=== PATIENT | male | born 1940 | race Caucasian/White ===

== ENCOUNTER 2020-05-05 18:30 | Emergency (ER) | payer OTHER ==
[2020-05-05 18:41] VITALS: BP 112/63; PULSE 89; TEMP 98.3; BMI 29.5
--- OUTSIDE RECORDS SUMMARY | 2020-05-05 18:54 | XMS ---
:1940 Author Organization [facility] Support Name Relationship Address Phone RE Unavailable Unavailable Unavailable DAVI SHOOK [address] [place] [address] Re-disclosure Warning The records that you are about to access may contain information from federally- assisted alcohol or drug abuse programs. If such information is present, then the following federally mandated warning applies: This information has been disclosed to you from records protected by federal confidentiality rules (42 CFR part 2). The federal rules prohibit you from making any further disclosure of this information unless further disclosure is expressly permitted by the written consent of the person to whom it pertains or as otherwise permitted by 42 CFR part 2. A general authorization for the release of medical or other information is NOT sufficient for this purpose. The Federal rules restrict any use of the information to criminally investigate or prosecute any alcohol or drug abuse patient.The records that you are about to access may contain highly sensitive health information, the redisclosure of which is protected by Article 27-F of the [facility] Public Health law. If you continue you may haveaccess to information: Regarding HIV / AIDS; Provided by facilities licensed or operated by the [facility] Office of Mental Health; or Provided by the [facility] Office for People With Developmental Disabilities. If such information is present, then the following [facility] mandated warning applies: This information has been disclosed to you from confidential records which are protected by state law. State law prohibits you from making any further disclosure of this information without the specific written consent of the person to whom it pertains, or as otherwise permitted by law. Any unauthorized further disclosure in violation of state law may result in a fine or nursing home sentence or both. A general authorization for the release of medical or other information is NOT sufficient authorization for further disclosure. Insurance Providers Payer name Policy type Policy ID Covered Covered green party's Policy P rick / Coverage green party ID relationship to [employer] type [place] HIP MEDICARE [id number] VIP 2
--- NOTE | 2020-05-05 20:25 | PDOC ---
History of Present Illness - General Chief Complaint: Edema Stated Complaint: DVT Time Seen by Provider: 05/05/20 19:18 History Source: Patient Exam Limitations: No Limitations - History of Present Illness Initial Comments: 05/05/20 20:21 HISTORY OF PRESENT ILLNESS: 79-year-old male presents to the emergency department for evaluation of edema to his left hand starting 1 week ago. Patient was seen and evaluated by his primary doctor and was given antibiotics which finished on Friday. Patient reports the swelling had improved for a day and then returned. Patient was seen by his primary doctor today who recommended he come to the emergency department to rule out upper extremity DVT. No recent travel or sick contacts. PAST MEDICAL HISTORY: Denies past medical history SURGICAL HISTORY: Denies ALLERGIES: No known drug allergies REVIEW OF SYSTEMS General/Constitutional: Denies fever or chills. Denies weakness, weight change. HEENT: Denies change in vision. Denies ear pain or discharge. Denies sore throat. Cardiovascular: Denies chest pain or shortness of breath. Respiratory: Denies cough, wheezing, or hemoptysis. Gastrointestinal: Denies nausea, vomiting, diarrhea or constipation. Denies rectal bleeding. Genitourinary: Denies dysuria, frequency, or change in urination. Musculoskeletal: Denies joint or muscle swelling or pain. Denies neck or back pain. Skin and breasts: Denies rash or easy bruising. Neurologic: Denies headache, vertigo, loss of consciousness, or loss of sensation. Psychiatric: Denies depression or anxiety. Endocrine: Denies increased thirst. Denies abnormal weight change. Hematologic/Lymphatic: Denies anemia, easy bleeding, or history of blood clots. Allergic/Immunologic: Denies hives or skin allergy. Denies latex allergy. PHYSICAL EXAM General Appearance: Well-appearing, appropriately dressed. No apparent distress, no intoxication. Neck: Supple. Trachea midline. No tenderness, rigidity, carotid bruit, stridor, lymphadenopathy, or thyromegaly. Respiratory/Chest: Lungs CTAB. No shortness of breath, chest tenderness, respiratory distress, accessory muscle use. No crackles, rales, rhonchi, stridor, wheezing, dullness Cardiovascular: RRR. S1, S2. No JVD, murmur, bradycardia, tachycardia. Vascular Pulses: Radial (R): 2+, radial (L): 2+ Musculoskeletal/Extremities: Dependent edema present to the distal left forearm extending to the hand. Full range of motion of left wrist with flexion, extension, pronation and supination. Left shoulder with decreased range of motion with abduction and abduction. No palpable deformities along clavicle, shoulder, scapula or humerus of the left arm. Neurovascularly intact. Integumentary: Appropriate color, dry, warm. 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 Fully oriented, alert. Appropriate mood/affect. Motor strength 5/5. No appreciable EOM palsy, facial droop or sensory deficit. Past History - Medical History Allergies/Adverse Reactions: Allergies Allergy/AdvReac Type Severity Reaction Status Date / Time No Known Allergies Allergy Verified 05/05/20 18:35 Cardiac Disorders: Yes COPD: No - Surgical History Cardiac Surgery: Yes (Stents) - Psycho-Social/Smoking History Smoking History: Former smoker Have you smoked in the past 12 months: No If you are a former smoker, when did you quit?: 40yrs Information on smoking cessation initiated: No - Substance Abuse Hx (Audit-C & DAST Scrn) How often the patient has a drink containing alcohol: Never Score: In Men: 4 or > Positive; In Women: 3 or > Positive: 0 Screen Result (Pos requires Nsg. Audit-10AR): Negative In the last yr the pt used illegal drug/Rx for NonMed reason: No Score: Yes response is considered Positive: 0 Screen Result (Positive result requires Nsg. DAST-10): Negative *Physical Exam - Vital Signs Last Vital Signs Temp Pulse Resp BP Pulse Ox 98.3 F 89 18 112/63 100 05/05/20 18:34 05/05/20 18:34 05/05/20 18:34 05/05/20 18:34 05/05/20 18:34 ED Treatment Course - RADIOLOGY Radiology Studies Ordered: Category Date Time Status CXR [CHEST PA & LAT] [RAD] Stat Radiology 05/05/20 19:34 Ordered SHOULDER-LEFT [RAD] Stat Radiology 05/05/20 19:22 Ordered DUPLEX VASCUL US-1 ARM [US] Stat Ultrasound 05/05/20 19:22 Ordered Medical Decision Making - Medical Decision Making 05/05/20 20:24 A/P: 79-year-old male with left distal forearm and hand Duplex Doppler of the left upper extremity to rule out DVT Left shoulder x-ray Chest x-ray Reassess 05/05/20 21:36 Ultrasound is read by Dr. Sinha: No evidence of DVT in the left upper extremity. Chest x-ray is read by me: Kierra herrera. Cardiac silhouette is within normal limits. No focal infiltrates or consolidations noted. Left shoulder x-rays read by me: No dislocations or fractures are present. Discharge home to continue evaluation with his primary doctor. I discussed the physical exam findings, ancillary test results and final diagnos es with the patient. I answered all of the patient's questions. The patient was satisfied with the care received and felt comfortable with the discharge plan and treatment plan. The patient will call their primary care physician within 24 hours to arrange follow-up and will return to the Emergency Department with any new, persistent or worsening symptoms. Portions of this note have been documented using voice recognition software. As a result, errors may occur in the weight checker process. Effort has been made to correct all grammatical and weight checker error, but some may have been missed which may produce sporadic inaccurate weight checker or nonsensical phrases. Discharge - Discharge Information Problems reviewed: Yes Clinical Impression/Diagnosis: Edema of left forearm Left shoulder pain Qualifiers: Chronicity: acute Qualified Code(s): M25.512 - Pain in left shoulder Condition: Fair Disposition: HOME - Admission No - Follow up/Referral Referrals: Gus Beltran [Primary Care Provider] - Ciro Post DO [Staff Physician] - - Patient Discharge Instructions Additional Instructions: Your ultrasound today showed no blood clot. Your chest x-ray and shoulder x-ray were unremarkable. You be given a referral for an orthopedist for evaluation of your left shoulder pain. Take Tylenol or Motrin as needed for pain. Follow chef de froid's instructions for appropriate dosage. Your emergency department visit is incomplete to you follow-up with your primary doctor. Return to the emergency department for any new or worsening symptoms. Thank you very much for choosing us to provide your emergent healthcare needs. - Post Discharge Activity
== END 2020-05-05 21:45 | disposition home or self-care (01) ==
LOC: JER 18:30
DX: R22.32 Localized swelling, mass and lump, left upper limb (principal); M25.512 Pain in left shoulder
CPT/HCPCS: 71046-TC-FY; 73030-TC-LT-FY; 93971; 99285-25

== ENCOUNTER 2020-05-07 09:52 | Emergency (ER) | payer OTHER ==
[2020-05-07 09:57] VITALS: BP 141/71; PULSE 70; TEMP 97; BMI 29.5
--- OUTSIDE RECORDS SUMMARY | 2020-05-07 10:02 | XMS ---
:1940 Author Organization [facility] Support Name Relationship Address Phone RE Unavailable Unavailable Unavailable DAVI SHOOK [address] [place] [address] DAVI SHOOK Spouse [phone] [place] [address] Re-disclosure Warning The records that you are [...] is protected by Article 27-F of the [facility] Public Health law. If you continue you may haveaccess to information: Regarding HIV / AIDS; Provided by facilities licensed or operated by the [facility] Office of Mental Health; or Provided by the [facility] Office for People With Developmental Disabilities. If such information is present, then the following [facility] mandated warning applies: This information has [...] law may result in a fine or residential sentence or both. A general authorization for the release of medical or other information is NOT sufficient authorization for further disclosure. Insurance Providers Payer name Policy type Policy ID Covered Covered libertarian's Policy P rick / Coverage libertarian ID relationship to [employer] orm[employer] type [employer] HIP MEDICARE [id number] VIP 2
--- NOTE | 2020-05-07 10:41 | PDOC ---
History of Present Illness - General Chief Complaint: Edema Stated Complaint: DVT Time Seen by Provider: 05/07/20 10:01 History Source: Patient Exam Limitations: No Limitations - History of Present Illness Initial Comments: 05/07/20 10:43 79 y.o. M PMHx CAD (x4 stents last placed in 1999), Hypothyroidism presenting due to bilateral arm swelling. Patient states he first noticed the swelling on his R arm 2 weeks ago that had later progressed to the L on Friday. Patient states the swelling started at the shoulder and progressed to the hand. Patient states he has limited range of motion on the R with and pain at the shoulder while the left has pain at the elbow along with bilateral palm numbness when he sleeps at night. He reports no medication changes but has taken a 5 day course of antibiotics prescribed outpatient. He reports no SOB, headache, fevers, flushing, chest pain, N/V/D. - Patient sttaes he was at [facility] ED on friday where a L arm DVT was ruled out PCP: Dr. Beltran PMHx: CAD (x4 stents last placed in 1999), Hypothyroidism Meds: In Chart Allergies: NKA Is this a multiple visit Asthma Patient?: No Timing/Duration: 1 week Severity: moderate Past History - Medical History Allergies/Adverse Reactions: Allergies Allergy/AdvReac Type Severity Reaction Status Date / Time No Known Allergies Allergy Verified 05/07/20 09:57 Home Medications: Ambulatory Orders Aspirin 81 mg PO 05/07/20 Atorvastatin Calcium 80 mg PO HS 05/07/20 Ibuprofen 400 mg PO Q6H #28 tablet 05/07/20 Levothyroxine [Synthroid -] 25 mcg PO DAILY 05/07/20 Losartan Potassium 25 mg PO DAILY 05/07/20 Metoprolol Tartrate 25 mg PO BID 05/07/20 Cardiac Disorders: Yes COPD: No - Surgical History Cardiac Surgery: Yes (Stents) - Psycho-Social/Smoking History Smoking History: Never smoked Have you smoked in the past 12 months: No If you are a former smoker, when did you quit?: 40yrs Review of Systems - Review of Systems Able to Perform ROS?: Yes Is the patient limited Spanish proficient: No Constitutional: No: Chills, Fever HEENTM: No: Blurred Vision, Double Vision Respiratory: No: Cough, Shortness of Breath Cardiac (ROS): No: Chest Pain, Lightheadedness ABD/GI: No: Constipated, Diarrhea, Nausea, Vomiting : No: Burning, Dysuria Musculoskeletal: No: Muscle Pain, Muscle Weakness Integumentary: No: Pruritus, Rash Neurological: No: Headache, Numbness, Dizziness Hematologic/Lymphatic: No: Easy Bleeding, Easy Bruising *Physical Exam - Vital Signs Last Vital Signs Temp Pulse Resp BP Pulse Ox 97 F L 70 18 141/71 99 05/07/20 09:54 05/07/20 09:54 05/07/20 09:54 05/07/20 09:54 05/07/20 09:54 - Physical Exam General Appearance: Yes: Nourished, Appropriately Dressed. No: Apparent Distress Respiratory/Chest: positive: Lungs Clear, Normal Breath Sounds. negative: Chest Tender, Respiratory Distress, Accessory Muscle Use, Crackles, Rales, Stridor, Wheezing Cardiovascular: positive: Regular Rhythm, Regular Rate. negative: Edema, JVD, Murmur Gastrointestinal/Abdominal: positive: Normal Bowel Sounds, Flat, Soft. negative: Tender, Rebound, Tenderness Musculoskeletal: positive: Normal Inspection. negative: CVA Tenderness Extremity: positive: Normal Inspection, Pedal Edema (2+ non pitting). negative: Tender, Coldness, Swelling, Calf Tenderness, Erythema, Inflammation Integumentary: positive: Normal Color, Dry, Warm, Swelling (b/l arm swelling from the shoulder to the hand, non pitting, not warm to the touch no excoriations, discoloration or lesions.). negative: Erythema, Pale, Cold, Clamm y, Diaphoresis, Rash, Ecchymosis, Bruising Neurologic: positive: Fully Oriented, Alert, Normal Mood/Affect, Normal Response. negative: Disoriented ED Treatment Course - LABORATORY CBC & Chemistry Diagram: 05/07/20 11:10 05/07/20 11:10 Medical Decision Making - Medical Decision Making 05/07/20 10:48 79 y.o. M PMHx CAD (x4 stents last placed in 1999), Hypothyroidism presenting due to bilateral arm swelling. DDx: DVT, Pancoast tumor, SVC syndrome Labs: wbc 10.2, Na 136, K 4.2, Crp 7.9, BNP 473 UA: WNL Dispo: D/C home 05/07/20 12:24 Discharge - Discharge Information Problems reviewed: Yes Clinical Impression/Diagnosis: Edema of left forearm Condition: Fair Disposition: HOME - Admission No - Follow up/Referral Referrals: Gus Beltran [Primary Care Provider] - Jose Jamil MD [Staff Physician] - - Patient Discharge Instructions Additional Instructions: You were seen in the emergency department for arm swelling. You received pain medication . Your labs and imaging showed no signs of infection You were given pain medication and received imaging in the emergency department and sent home with a prescription. Please follow up with your primary care physician and Inner Tube Cutter (Dr. Jamil) regarding your visit to the emergency department. If you experience profound Pain, numbness, tingling, facial flushing, headache, shortness of breath please return to the emergency department or call 911. - Post Discharge Activity
[2020-05-07] MEDS ORDERED: LIDOCAINE 5% TOPICAL PATCH TP ONE (10:52)
[2020-05-07] MEDS ORDERED: ACETAMINOPHEN 1000 MG/100 ML VIAL (NON FORMULARY) IVPB ONE (10:52)
[2020-05-07] MEDS ORDERED: LIDOCAINE 5% TOPICAL PATCH ONE (11:12)
[2020-05-07] MEDS ORDERED: ACETAMINOPHEN INJECTION 100 ML IVPB ONE (11:12)
[2020-05-07 11:40] LABS: PH,URINE 6.5 (5.0-8.0); URINE APPEARANCE CLEAR; URINE BILIRUBIN NEGATIVE (NEGATIVE); URINE COLOR YELLOW; URINE GLUCOSE (UA) NEGATIVE (NEGATIVE); URINE KETONE NEGATIVE (NEGATIVE); URINE LEUK ESTERASE NEGATIVE (NEGATIVE); URINE NITRITE NEGATIVE (NEGATIVE); URINE PROTEIN NEGATIVE (NEGATIVE)
[2020-05-07 11:42] LABS: BASO % 0.4 % (0-2.0); EOS % 2.1 % (0-4.5); HEMATOCRIT 37.1 % (35.4-49); HEMOGLOBIN 11.7 GM/dL (11.7-16.9); LYMPH % 31.7 % (8-40); MCH 21.4 pg (25.7-33.7); MCHC 31.5 g/dl (32.0-35.9); MEAN CELL VOLUME 67.9 fl (80-96); MEAN PLT VOLUME 8.6 fl (7.5-11.1); MONO % 8.8 % (3.8-10.2); PLATELET COUNT 283 K/MM3 (134-434); RBC 5.47 M/mm3 (4.00-5.60); RDW 16.6 % (11.9-15.9); WHITE BLOOD COUNT 10.2 K/mm3 (4.0-10.0)
[2020-05-07 12:13] LABS: ANISOCYTOSIS 3+; MACROCYTOSIS 0; PLATELET ESTIMATE NORMAL; TEAR DROP CELLS 1+
[2020-05-07 12:22] LABS: ALBUMIN 3.4 g/dl (3.4-5.0); BILIRUBIN,TOTAL 0.6 mg/dL (0.2-1); BLOOD UREA NITROGEN 20.3 mg/dL (7-18); CALCIUM 8.6 mg/dL (8.5-10.1); CREATININE 1.1 mg/dL (0.55-1.3); N-TERMINAL BNP 472.9 pg/ml (5-450); POTASSIUM 4.2 mmol/L (3.5-5.1); TOT PROT 7.4 g/dl (6.4-8.2); URIC ACID 4.5 mg/dL (2.6-7.2)
--- NOTE | 2020-05-07 13:18 | PDOC ---
Documentation entered by Fawn Pickens SCRIBE, acting as scribe for Mary Alice Palm MD. Mary Alice Palm MD: This documentation has been prepared by the Nelia mackey Sydney, SCRIBE, under my direction and personally reviewed by me in its entirety. I confirm that the documentation accurately reflects all work, treatment, procedures, and medical decision making performed by me. Attending Attestation - Resident Resident Name: AngelaSathish - ED Attending Attestation I have performed the following: I have examined & evaluated the patient, The case was reviewed & discussed with the resident, I agree w/resident's findings & plan, Exceptions are as noted - HPI HPI: 05/07/20 10:07 Patient is a 79 year old male with a significant past medical history of HTN, HLD, CAD (x4 stents last placed in 1999) who presents to the ED with bilateral arm swelling. As per patient, he began noticing right arm swelling two weeks ago and left arm swelling since Friday, for which he was seen in the ED on 05/05. He endorses the swelling began in his R shoulder, later progressed to his hand, where he notes a limited range of motion with pain in his R shoulder. Patient reports pain in his L elbow, and bilateral palm numbness when sleeping. Denies headache, fever, chills, shortness of breath, chest pain, abdominal pain, nausea, vomiting, diarrhea, or urinary changes. Allergies: NKDA PCP: Devin - Physicial Exam PE: 05/07/20 13:00 Pt is alert and oriented and in no acute distress. + mild diffuse swelling and tenderness in his R hand without erythema. + tenderness of the R shoulder without erythema and pain limited ROM. No swelling of the arm except for the shoulder and hand. - Medical Decision Making 05/07/20 13:11 Pt presents to the ED complaining of pain in his R hand and shoulder. Symptoms are most consistent with arthritis. No symptoms consistent with infection. DVT less likely but remained on the differential, so duplex was performed and is negative. Inflammatory markers are elevated, consistent with arthritis. Will discharge home with instructios to follow up with PCP and rheumatology. Discharge - Discharge Information Problems reviewed: Yes Clinical Impression/Diagnosis: Edema of left forearm Condition: Fair Disposition: HOME - Additional Discharge Information Prescriptions: Ibuprofen 400 mg PO Q6H #28 tablet Lidocaine 5% Patch [Lidoderm -] 1 patch TP DAILY #7 patch - Follow up/Referral Referrals: Jose Jamil MD [Staff Physician] - Gus Beltran [Primary Care Provider] - - Patient Discharge Instructions Additional Instructions: You were seen in the emergency department for arm swelling. You received pain medication . Your labs and imaging showed no signs of infection You were given pain medication and received imaging in the emergency department and sent home with a prescription. Please follow up with your primary care physician and Meat And Poultry Inspector (Dr. Jamil) regarding your visit to the emergency department. If you experience profound Pain, numbness, tingling, facial flushing, headache, shortness of breath please return to the emergency department or call 911. - Post Discharge Activity
[2020-05-07] MEDS ORDERED: LIDOCAINE PATCH REMOVAL MC SCH (22:00)
== END 2020-05-07 13:00 | disposition home or self-care (01) ==
LOC: JER 09:52
PROC: 3E033NZ Introduction of Analgesics, Hypnotics, Sedatives into Peripheral Vein, Percutaneous Approach (ICD-10-PCS; principal; 2020-05-07)
DX: R22.32 Localized swelling, mass and lump, left upper limb (principal)
CPT/HCPCS: 36415; 80053; 81003; 83880; 84550; 85025; 85651; 86140; 93971; 99285-25; J0131

== ENCOUNTER 2020-06-19 13:16 | Inpatient (IN) | payer OTHER ==
[2020-06-19] MEDS ORDERED: ACETAMINOPHEN 1000 MG/100 ML VIAL (NON FORMULARY) IVPB ONE (14:32)
[2020-06-19] MEDS ORDERED: SODIUM CHLORIDE 0.9% 500 ML INFUS.BAG IV ONE (14:32)
[2020-06-19] MEDS ORDERED: morphine CARPU-JECT 4 MG/1 ML DISP.SYRIN IVPUSH ONE (14:32)
[2020-06-19] MEDS ORDERED: morphine SULFATE 4 MG/ML VIAL ONE (15:12)
[2020-06-19] MEDS ORDERED: ACETAMINOPHEN INJECTION 100 ML IVPB ONE (15:12)
[2020-06-19 15:30] LABS: HEMATOCRIT 35.8 % (35.4-49); HEMOGLOBIN 11.1 GM/dL (11.7-16.9); MCH 20.8 pg (25.7-33.7); MCHC 30.9 g/dl (32.0-35.9); MEAN CELL VOLUME 67.3 fl (80-96); MEAN PLT VOLUME 9.2 fl (7.5-11.1); PLATELET COUNT 183 K/MM3 (134-434); RBC 5.31 M/mm3 (4.00-5.60); RDW 18.4 % (11.9-15.9)
[2020-06-19 15:36] LABS: INR 0.98 (0.83-1.09); PROTHROMBIN TIME (PATIENT) 12.1 SEC (9.7-13.0)
[2020-06-19 15:39] LABS: ACTIVATED PTT 24.1 SECONDS (25.2-36.5)
[2020-06-19] MEDS ORDERED: ONDANSETRON 4 MG/2 ML VIAL IVPUSH PRN ×2 (15:39→18:26)
[2020-06-19] MEDS ORDERED: PROPOFOL 20 ML ONE ×2 (15:44→15:45)
[2020-06-19] MEDS ORDERED: LACTATED RINGERS SOLUTION 1,000 ML IV SCH ×2 (15:45→22:00)
[2020-06-19] MEDS ORDERED: LIDOCAINE HCL 1%, 10 MG/ML (20ML VIAL) ONE (15:48)
[2020-06-19] MEDS ORDERED: SUCCINYLCHOLINE CHLORIDE 200 MG/10 ML SYRINGE ONE (15:48)
[2020-06-19 15:50] LABS: CHLORIDE 105 mmol/L (98-107); SODIUM 140 mmol/L (136-145)
[2020-06-19 15:51] LABS: ALBUMIN 3.3 g/dl (3.4-5.0); CALCIUM 8.3 mg/dL (8.5-10.1)
[2020-06-19 15:52] LABS: ANION GAP 7 MMOL/L (8-16); BLOOD UREA NITROGEN 25.8 mg/dL (7-18); CO2 28 mmol/L (21-32); GLUCOSE,RANDOM 146 mg/dL (74-106); MAGNESIUM 2.1 mg/dL (1.8-2.4)
[2020-06-19] MEDS ORDERED: CEFAZOLIN 2 GM/D5W 2 GM/50 ML ML IVPB ONE ×2 (15:53→16:51)
[2020-06-19 15:55] LABS: CREATININE 1.3 mg/dL (0.55-1.3); SGOT/AST 16 U/L (15-37); SGPT/ALT 23 U/L (13-61)
[2020-06-19 15:56] LABS: BILIRUBIN,TOTAL 0.7 mg/dL (0.2-1); TOT PROT 6.5 g/dl (6.4-8.2)
[2020-06-19 15:57] LABS: ALK PHOS 96 U/L (45-117)
[2020-06-19] MEDS ORDERED: MIDAZOLAM HCL 2 MG/2 ML SINGLE DOSE VIAL ONE (16:59)
[2020-06-19] MEDS ORDERED: ceFAZolin SODIUM 1 GM VIAL IVPB ONE (17:05)
[2020-06-19] MEDS ORDERED: EPHEDRINE SULFATE/0.9% NACL/PF 50 MG/10 ML SYRINGE NR ONE (17:40)
[2020-06-19] MEDS ORDERED: LIDOCAINE HCL 1%, 10 MG/ML (20ML VIAL) NR ONE (18:07)
[2020-06-19] MEDS ORDERED: BUPIVACAINE HCL/PF 0.5% (5 MG/ML) 30 ML VIAL IJ ONE (18:07)
[2020-06-19] MEDS ORDERED: oxyCODONE HCL 5 MG TABLET PO PRN ×2 (18:26)
[2020-06-19] MEDS ORDERED: ONDANSETRON 4 MG/2 ML VIAL ONE (18:47)
[2020-06-19] MEDS ORDERED: PROMETHAZINE HCL 25 MG/1 ML VIAL ONE (18:57)
[2020-06-19] MEDS ORDERED: PROMETHAZINE HCL 25 MG/1 ML VIAL IVPUSH PRN (19:32)
[2020-06-19] MEDS ORDERED: ATORVASTATIN CA 80 MG TABLET (FP) PO SCH (22:00)
[2020-06-19] MEDS: HEPARIN NA (PORCINE) 5,000 UNITS/ML 1ML VIAL SQ SCH (22:21)
[2020-06-19] MEDS: METOPROLOL TARTRATE 25 MG TABLET (FP) PO SCH (22:21)
[2020-06-19 23:42] VITALS: BMI 26.9
[2020-06-20 01:56] LABS: EPI CELLS 5 /uL (0-25.1); HYALINE CASTS 1 /uL (0-3.1); PH,URINE 7.5 (5.0-8.0); URINE APPEARANCE CLEAR; URINE BACTERIA 6 /uL (0-1359); URINE BILIRUBIN NEGATIVE (NEGATIVE); URINE COLOR ORANGE; URINE GLUCOSE (UA) NEGATIVE (NEGATIVE); URINE KETONE NEGATIVE (NEGATIVE); URINE LEUK ESTERASE NEGATIVE (NEGATIVE); URINE NITRITE NEGATIVE (NEGATIVE); URINE PROTEIN NEGATIVE (NEGATIVE); URINE RBC 2612 /uL (0-23.9); URINE UROBILINOGEN 0.2 mg/dL (0.2-1.0); URINE WBC 45 /uL (0-25.8)
[2020-06-20] MEDS: predniSONE 5 MG TABLET (UD) PO SCH ×2 (06:32→14:05)
[2020-06-20] MEDS ORDERED: LEVOTHYROXINE NA 25 MCG TABLET (FP) PO SCH (07:00)
[2020-06-20 07:37] LABS: POTASSIUM 4.3 mmol/L (3.5-5.1)
[2020-06-20 07:39] LABS: HEMATOCRIT 31.9 % (35.4-49); HEMOGLOBIN 9.8 GM/dL (11.7-16.9); MCHC 30.8 g/dl (32.0-35.9); MEAN CELL VOLUME 68.2 fl (80-96); MEAN PLT VOLUME 9.1 fl (7.5-11.1); PLATELET COUNT 158 K/MM3 (134-434); RBC 4.68 M/mm3 (4.00-5.60); RDW 18.6 % (11.9-15.9); WHITE BLOOD COUNT 12.6 K/mm3 (4.0-10.0)
[2020-06-20 07:46] LABS: ALBUMIN 2.6 g/dl (3.4-5.0); BLOOD UREA NITROGEN 18.5 mg/dL (7-18); CALCIUM 7.9 mg/dL (8.5-10.1)
[2020-06-20 07:47] LABS: BILIRUBIN,TOTAL 0.8 mg/dL (0.2-1); MAGNESIUM 2.1 mg/dL (1.8-2.4)
[2020-06-20 07:48] LABS: TOT PROT 5.3 g/dl (6.4-8.2)
[2020-06-20 07:49] LABS: CREATININE 1.1 mg/dL (0.55-1.3); PHOSPHOROUS 4.2 mg/dL (2.5-4.9)
[2020-06-20 08:31] LABS: RETICULOCYTES 2.49 % (0.5-1.5)
[2020-06-20 09:48] VITALS: BP 137/75; PULSE 75; TEMP 98.3
[2020-06-20] MEDS: HEPARIN NA (PORCINE) 5,000 UNITS/ML 1ML VIAL SQ SCH (09:55)
[2020-06-20] MEDS: METOPROLOL TARTRATE 25 MG TABLET (FP) PO SCH (09:55)
[2020-06-20] MEDS ORDERED: LIDOCAINE 5% TOPICAL PATCH TP SCH (10:00)
[2020-06-20] MEDS ORDERED: LOSARTAN POTASSIUM 25 MG TABLET PO SCH (10:00)
[2020-06-20] MEDS ORDERED: ASPIRIN 81 MG CHEWABLE TABLETS PO SCH (10:00)
[2020-06-20] MEDS ORDERED: LIDOCAINE PATCH REMOVAL MC SCH (22:00)
== END 2020-06-20 14:18 | disposition home or self-care (01) | DRG 352 ==
LOC: JER 13:16 → JERBED 15:42 → J7W 21:04
PROVIDERS: ATTEND Student in an Organized Health Care Education/Training Program
PROC: 0YU507Z Supplement Right Inguinal Region with Autologous Tissue Substitute, Open Approach (ICD-10-PCS; principal; 2020-06-19 15:30)
DX: K40.31 Unilateral inguinal hernia, with obstruction, without gangrene, recurrent (principal); I25.10 Atherosclerotic heart disease of native coronary artery without angina pectoris; I10 Essential (primary) hypertension; E78.5 Hyperlipidemia, unspecified; D64.9 Anemia, unspecified; D72.829 Elevated white blood cell count, unspecified; R00.1 Bradycardia, unspecified; H40.9 Unspecified glaucoma; Z95.5 Presence of coronary angioplasty implant and graft
CPT/HCPCS: 36415; 71045-TC-FY; 80053; 81003; 82550; 82728; 83540; 83550; 83605; 83735; 84100; 84484; 85027; 85045; 85610; 85730; 86850; 86900; 86901; 88304-TC; 93005; 93010; 94010; 94760; 99285-25; C9803; J0131; J1644; U0003

== ENCOUNTER 2020-10-02 04:40 | Day surgery (SDC) | payer OTHER ==
[2020-09-28 15:05] VITALS: BMI 28.8
[2020-10-02 08:44] VITALS: TEMP 97.1
[2020-10-02 09:50] VITALS: BP 137/77; PULSE 55
== END 2020-10-02 09:41 | disposition home or self-care (01) ==
LOC: JASU-ENDO 04:40
PROVIDERS: ATTEND Internal Medicine Gastroenterology
PROC: 0DBL8ZX Excision of Transverse Colon, Via Natural or Artificial Opening Endoscopic, Diagnostic (ICD-10-PCS; 2020-10-02)
PROC: 0DBK8ZX Excision of Ascending Colon, Via Natural or Artificial Opening Endoscopic, Diagnostic (ICD-10-PCS; 2020-10-02)
PROC: 0DB98ZX Excision of Duodenum, Via Natural or Artificial Opening Endoscopic, Diagnostic (ICD-10-PCS; 2020-10-02)
PROC: 0DB78ZX Excision of Stomach, Pylorus, Via Natural or Artificial Opening Endoscopic, Diagnostic (ICD-10-PCS; 2020-10-02)
PROC: 0DB38ZX Excision of Lower Esophagus, Via Natural or Artificial Opening Endoscopic, Diagnostic (ICD-10-PCS; 2020-10-02)
PROC: 0DB48ZX Excision of Esophagogastric Junction, Via Natural or Artificial Opening Endoscopic, Diagnostic (ICD-10-PCS; 2020-10-02)
PROC: 0DBN8ZX Excision of Sigmoid Colon, Via Natural or Artificial Opening Endoscopic, Diagnostic (ICD-10-PCS; principal; 2020-10-02 08:00)
DX: Z12.11 Encounter for screening for malignant neoplasm of colon (principal); D12.5 Benign neoplasm of sigmoid colon; D12.3 Benign neoplasm of transverse colon; D12.2 Benign neoplasm of ascending colon; K57.30 Diverticulosis of large intestine without perforation or abscess without bleeding; K64.8 Other hemorrhoids; D64.9 Anemia, unspecified; K92.1 Melena; K44.9 Diaphragmatic hernia without obstruction or gangrene; K21.00 Gastro-esophageal reflux disease with esophagitis, without bleeding; K29.00 Acute gastritis without bleeding; K26.3 Acute duodenal ulcer without hemorrhage or perforation; K31.5 Obstruction of duodenum; K22.2 Esophageal obstruction
CPT/HCPCS: 88305-TC; 88312-TC; 88342-TC